=== PATIENT | female | born 1990 | race Caucasian/White ===

== ENCOUNTER 2016-11-02 08:34 | Emergency (ER) ==
[2016-11-02 08:41] VITALS: BP 132/80
--- NOTE | 2016-11-02 09:59 | PROVIDER DOCUMENTATION ---
[facility] General - General Source: patient - History of Present Illness-EENT General [facility] Location: reports: throat Quality of Pain: reports: other (sore) Severity: reports: moderate Onset/Duration: reports: 24 hours ago Timing: reports: still present Prearrival Treatment: Initiated no prearrival treatment Associated Symptoms: reports: sore throat. denies: cough, fever, tooth pain Similar Symptoms Previously?: No Recently seen or treated by another doctor?: No <Yanira Astudillo - Last Filed: 11/02/16 09:59> <Jameson Hardwick - Last Filed: 11/02/16 10:06> - General Chief Complaint: Sore Throat Stated Complaint: SORE THROAT Time Seen by Provider: 11/02/16 09:55 Allergies/Adverse Reactions: Patient Allergies Allergy/AdvReac Type Severity Reaction Status Date / Time Penicillins Allergy Mild RASH Verified 12/16/15 12:05 morphine Allergy RASH Verified 03/25/16 07:56 Home Medications: Home Medication List Medication Instructions Recorded Confirmed Last Taken Type Cefprozil [Cefzil] 500 mg PO BID #14 tablet 11/02/16 Unknown Rx - History of Present Illness-[facility] General Nature of Presenting Problem: pt is a 25 y/o f present to the ER with complaints of a sore throat. (Yanira Astudillo) Review of Systems - Adult - REVIEW OF SYSTEMS - ADULT Constitutional: denies: chills, fever Eyes: reports: no symptoms reported Ears, Nose, Mouth & Throat: reports: throat pain. denies: ear pain, hearing loss, sinus problem, nose pain, hoarseness Cardiovascular: denies: chest pain Respiratory: denies: chronic cough, cough, dyspnea on exertion Gastrointestinal: denies: abdominal pain, hematemesis, constipation Genitourinary: reports: no symptoms reported Musculoskeletal: reports: no symptoms reported Integumentary: reports: no symptoms reported Neurological: reports: no symptoms reported Psychiatric: reports: no symptoms reported Endocrine: reports: no symptoms reported Hematologic/Lymphatic: reports: no symptoms reported Allergic/Immunologic: reports: no symptoms reported All Other Systems: Reviewed and Negative <Yanira Astudillo - Last Filed: 11/02/16 09:59> Past History - Adult - PAST MEDICAL HISTORY-ADULT Review of Records: reports: Nursing Assessment Review Cardiovascular: reports: other (heart stent ) Respiratory: denies: COPD, cancer, cystic fibrosis Musculoskeletal: reports: chronic pain (back) Neurological: reports: headaches/migraines Additional History: Epischleratis - PRIOR SURGERIES/PROCEDURES Surgical/Procedure History: reports: cholecystectomy, - IMMUNIZATION STATUS Childhood Immunizations: See Nurse Assessment Flu Vaccine: See Nurse Assessment <Yanira Astudillo - Last Filed: 11/02/16 09:59> Physical Exam- EENT - Physical Exam EENT Initial Vital Signs Reviewed: Yes General Appearance: appears well, alert, no apparent distress Throat Exam: other (errythema). negative: dental tenderness, excessive drooling , foreign body, tongue swollen Neck: non-tender, full range of motion Respiratory: chest non-tender, lungs clear, normal breath sounds, no pleuratic chest pain, no respiratory distress, no accessory muscle use Cardiovascular: normal peripheral pulses, regular rate, rhythm, no edema, no gallop, no JVD, no murmur Abdominal Exam: normal bowel sounds, non tender, soft Extremity: normal range of motion, non-tender, normal gait, normal inspection, no pedal edema, no calf tenderness, normal capillary refill Integumentary: normal color, normal turgor, warm/dry Neurologic: grossly normal, no motor/sensory deficits Psych/Mental Status: normal mood/affect, normal thought content, normal thought process, oriented x 3 <Yanira Astudillo - Last Filed: 11/02/16 09:59> Progress <Yanira Astudillo - Last Filed: 11/02/16 09:59> <Jameson Hardwick - Last Filed: 11/02/16 10:06> - PLAN OF CARE/RESULTS Progress/Plan/Lab Results: Laboratory Tests 11/02/16 08:38 Group A Strep Rapid POSITIVE A Orders Category Date Time Status DIRECT STREP PL Stat Lab 11/02/16 08:38 Completed Vital Signs - 24 hr 11/02/16 08:39 Temperature 97 F L Pulse Rate 80 Respiratory 18 Rate Blood Pressure 132/80 O2 Sat by Pulse 99 Oximetry (Yanira Astudillo) Departure <Yanira Astudillo - Last Filed: 11/02/16 09:59> - Departure Time of Disposition Order: 10:06 Certified Medical Emergency: Emergent <Jameson Hardwick - Last Filed: 11/02/16 10:06> - Departure DIAGNOSIS: Strep throat Disposition: HOME 01 Condition: Stable Additional Instructions: ED Follow Up Instructions: You have been treated by a care provider in the Emergency Department. These instructions are being provided to you so you can have an understanding of how to care for yourself upon discharge. Upon discharge from the Emergency Department, you are responsible for making arrangements for follow-up care by a physician of your choice. Take all prescribed medications as directed. Return to the Emergency Department immediately for any new or worsening symptoms. You may call the Physician Referral phone number at [phone] to obtain a list of Physicians who are taking new patients. Prescriptions: Cefprozil [Cefzil] 500 mg PO BID #14 tablet Referrals: Yadiel Yanes MD [STAFF PHYSICIAN] - None,PCP [Primary Care Provider] - Forms: Return to School/Parent Work Instructions: Cefprozil tablets Attestation - Scribe Verification/Attestation Scribe:: Yanira Astudillo Acting as Scribe for:: Jameson Hardwick Scribe documention review:: This chart was documented by a scribe and accurately reflects the service the provider performed and the decisions made by the provider. <Yanira Astudillo - Last Filed: 11/02/16 09:59> Physician Attestation
== END 2016-11-02 10:20 | disposition home or self-care (01) ==
LOC: P.ED 08:34
DX: J02.0 Streptococcal pharyngitis (principal); J02.9 Acute pharyngitis, unspecified; G89.29 Other chronic pain; M54.9 Dorsalgia, unspecified; Z95.5 Presence of coronary angioplasty implant and graft
CPT/HCPCS: 87430; 99283